=== PATIENT | male | born 1955 | race African-American/Black ===

== ENCOUNTER 2016-10-20 13:53 | Emergency (ER) | payer OTHER ==
[~2016-10-20] VITALS: Ht 177.8 cm; Wt 65.9 kg
[~2016-10-20 13:53] MED LIST: IPRA4AER IH; METF500T4 PO; TIOT185 IH
[2016-10-20] MEDS ORDERED: LORA10TA7 PO (14:12)
[2016-10-20] MEDS ORDERED: TERA5 PO (14:12)
[2016-10-20] MEDS ORDERED: MORP15TA70 PO (14:12)
[2016-10-20] MEDS ORDERED: METO-296 PO (14:12)
[2016-10-20] MEDS ORDERED: UMEC62.5 PUFF (14:12)
[2016-10-20] MEDS ORDERED: MORP15T PO (14:12)
[2016-10-20] MEDS ORDERED: NITR.4 SL (14:12)
[2016-10-20 14:59] LABS: BASOPHILS % (AUTO) 0.2 % (0.0-2.0); EOSINOPHILS % (AUTO) 0.6 % (1.0-6.0); HEMATOCRIT 28.3 % (41-53); HEMOGLOBIN 9.4 g/dL (13.5-17.5); LYMPHOCYTES # (AUTO) 1.9 K/uL (1.0-4.8); LYMPHOCYTES % (AUTO) 20.7 % (22.0-44.0); MEAN CORPUSCULAR HEMOGLOBIN 28.1 pg (26.0-34.0); MEAN CORPUSCULAR HGB CONC 33.2 G/dL (31.0-37.0); MEAN CORPUSCULAR VOLUME 84 fL (80-100); MONOCYTES # (AUTO) 1.1 K/uL (0.1-1.0); MONOCYTES % (AUTO) 12.1 % (2.0-9.0); NEUTROPHILS % (AUTO) 66.4 % (40.0-70.0); PLATELET COUNT (AUTO) 245 K/uL (150-450); RED BLOOD CELL COUNT(AUTO) 3.35 MIL/uL (4.50-5.90); RED CELL DISTRIBUTION WIDTH 21.4 % (11.5-14.5)
[2016-10-20 15:07] LABS: ANION GAP 8 mmol/L (8-16); CARBON DIOXIDE 29 mmol/L (22-29); CHLORIDE 94 mmol/L (98-107); CREATININE 1.74 mg/dL (0.60-1.30); GLOMERULAR FILTR. RATE CALC 48 mL/min (>60); POTASSIUM 4.5 mmol/L (3.5-5.1); SODIUM SERUM 131 mmol/L (136-145); UREA NITROGEN, BLOOD 24 mg/dL (7-18)
[2016-10-20 15:13] LABS: ALANINE AMINOTRANSFERASE 21 U/L (12-78); ALBUMIN 3.6 g/dL (3.4-5.0); ASPARTATE AMINOTRANSFERASE 13 U/L (15-37); BILIRUBIN,TOTAL 0.3 mg/dL (0.1-1.0); CREATINE KINASE, TOTAL 52 U/L (39-308); TOTAL PROTEIN, SERUM 7.7 g/dL (6.4-8.2)
[2016-10-20 15:17] LABS: RBC MORPHOLOGY COMMENT ABNORMAL RBC MORPH
[2016-10-20] MEDS ORDERED: ONDANSETRON HCL 4 MG/2 ML VIAL IVP ONE (15:30)
[2016-10-20] MEDS ORDERED: HYDROmorphone 2 MG/ML SYRINGE IVP ONE (15:30)
[2016-10-20] MEDS ORDERED: SODIUM CHLORIDE 0.9% 1,000 ML IV ONE (16:15)
[2016-10-20] MEDS ORDERED: LORazepam 2 MG/ML VIAL IVP ONE (16:45)
[2016-10-20 17:15] VITALS: BP 154/81
== END 2016-10-20 17:35 | disposition home or self-care (01) ==
LOC: EMS 13:54
DX: R07.9 Chest pain, unspecified (principal); D64.9 Anemia, unspecified; N28.9 Disorder of kidney and ureter, unspecified; F17.210 Nicotine dependence, cigarettes, uncomplicated; J44.9 Chronic obstructive pulmonary disease, unspecified; I10 Essential (primary) hypertension; E78.00 Pure hypercholesterolemia, unspecified; E11.9 Type 2 diabetes mellitus without complications; Z86.73 Personal history of transient ischemic attack (TIA), and cerebral infarction without residual deficits; Z88.0 Allergy status to penicillin
CPT/HCPCS: 36415; 71020; 80053; 82550; 82962; 84484; 85025; 93005; 93970; 96361; 96374; 96375; 99285; J1170; J2060; J2405